=== PATIENT | female | born 1980 | race Two or more races ===

== ENCOUNTER 2017-09-08 15:34 | Emergency (ER) | payer OTHER ==
[~2017-09-08] VITALS: Ht 165.1 cm; Wt 61.2 kg
[2017-09-08 15:35] VITALS: BP 138/80
[2017-09-08] MEDS ORDERED: IBUPROFEN 600 MG TABLET PO ONE ×2 (16:15→16:30)
== END 2017-09-08 16:21 | disposition home or self-care (01) ==
LOC: ER 15:39
DX: S39.012A Strain of muscle, fascia and tendon of lower back, initial encounter (principal); W01.0XXA Fall on same level from slipping, tripping and stumbling without subsequent striking against object, initial encounter; Y93.89 Activity, other specified; Y92.89 Other specified places as the place of occurrence of the external cause; Y99.8 Other external cause status
CPT/HCPCS: A4606; Z7610

== ENCOUNTER 2018-12-06 16:22 | Emergency (ER) | payer OTHER ==
[~2018-12-06] VITALS: Ht 162.6 cm; Wt 64.4 kg
[2018-12-06 16:37] VITALS: BP 133/66
--- NOTE | 2018-12-06 16:37 | NUR ---
BIB SELF W C/O COUGH AND CONGESTION x 5 DAYS, AFEBRILE, -SOB, TO ER BED 9, HOOKED TO MONITOR, AWAITING MD WILCOX
== END 2018-12-06 17:25 | disposition home or self-care (01) ==
LOC: ER 16:22
DX: J02.9 Acute pharyngitis, unspecified (principal); Z60.2 Problems related to living alone

== ENCOUNTER 2020-01-28 15:36 | Emergency (ER) | payer OTHER ==
[~2020-01-28] VITALS: Ht 162.6 cm; Wt 63.5 kg
--- NOTE | 2020-01-28 16:00 | NUR ---
"I THINK I MIGHT BE " CRAMPING AND VOMITING WITH EATING X4 WKS. PATIENT A/OX4, BREATHING EVEN AND UNLABORED, NO SOB NOTED, NO DISTRESS NOTED. KEPT COMFORTABLE IN BED, CHANGED INTO GOWN.
[2020-01-28 16:27] LABS: BASOPHILS % (AUTO) 0.2 % (0.0-2.0); EOSINOPHILS % (AUTO) 0.5 % (0.0-6.0); HEMATOCRIT 41 % (33-45); HEMOGLOBIN 13.6 g/dL (11.5-14.8); LYMPHOCYTES # (AUTO) 1.8 /CMM (0.8-4.8); LYMPHOCYTES % (AUTO) 13.9 % (20.0-44.0); MEAN CORPUSCULAR HGB CONC 34 g/dl (31.0-36.0); MEAN CORPUSCULAR VOLUME 94 fL (82-100); MONOCYTES # (AUTO) 0.9 /CMM (0.1-1.30); NEUTROPHILS # (AUTO) 9.9 /CMM (1.8-8.9); NEUTROPHILS % (AUTO) 78.4 % (43.0-81.0); PLATELET COUNT (AUTO) 240 /CMM (150-450); RED BLOOD CELL COUNT(AUTO) 4.32 MIL/uL (4.0-5.2); WHITE BLOOD COUNT (AUTO) 12.7 K/uL (4.3-11.0)
[2020-01-28 16:41] LABS: CREATININE 0.5 mg/dL (0.6-1.3); POTASSIUM 3.8 mmol/L (3.5-5.1)
[2020-01-28 16:45] LABS: APPEARANCE,URINE Clear (CLEAR); BILIRUBIN,URINE Negative (NEGATIVE); BLOOD, URINE Negative Ery/uL (NEGATIVE); COLOR,URINE Yellow (YELLOW); KETONES,URINE Negative (NEGATIVE); LEUKOCYTE ESTERASE ,URINE Negative (NEGATIVE); NITRITE, URINE Negative (NEGATIVE); PH,URINE 7.5 (5.0-8.0); PROTEIN,URINE Negative (NEGATIVE); UGLUCOSE Negative (NEGATIVE); UROBILINOGEN,URINE 0.2 EU/dL (0.2)
--- NOTE | 2020-01-28 16:55 | NUR ---
US TECH AT BEDSIDE.
[2020-01-28 16:58] LABS: ALBUMIN 3.5 g/dL (3.4-5.0)
--- NOTE | 2020-01-28 18:39 | NUR ---
PATIENT A/OX4, AMBULATORY, DENIES VAGINAL BLEEDING. NEEDS ATTENDED. Patient discharged to home in stable condition. Written and verbal after care instructions given. Patient verbalizes understanding of instruction.
[2020-01-28 18:41] VITALS: BP 119/73
== END 2020-01-28 18:41 | disposition home or self-care (01) ==
LOC: ER 15:38
DX: O21.9 Vomiting of pregnancy, unspecified (principal); Z3A.10 10 weeks gestation of pregnancy
CPT/HCPCS: 36415; 76805-TC; 80053-TC; 81000-TC; 83690-TC; 84702-TC; 84703-TC; 85025-TC

== ENCOUNTER 2020-09-04 20:13 | Emergency (ER) | payer OTHER ==
[~2020-09-04] VITALS: Ht 162.6 cm; Wt 67.1 kg
[2020-09-04 20:19] VITALS: BP 154/115
== END 2020-09-04 21:03 | disposition home or self-care (01) ==
LOC: ER 20:13
DX: M79.18 Myalgia, other site (principal); M54.6 Pain in thoracic spine; Z98.890 Other specified postprocedural states

== ENCOUNTER 2023-09-05 09:54 | Emergency (ER) | payer OTHER ==
[~2023-09-05] VITALS: Ht 162.6 cm; Wt 74.8 kg
[2023-09-05 09:59] VITALS: BP 138/81; TEMP 98.7
[2023-09-05] MEDS ORDERED: HUMI1EAC4 MC (10:46)
[2023-09-05] MEDS ORDERED: FLUT16SP16 BNOSTRILS (10:46)
[2023-09-05 10:58] VITALS: O2SAT 100
== END 2023-09-05 10:57 | disposition home or self-care (01) ==
LOC: ER 09:57
DX: R05.9 Cough, unspecified (principal); Z98.890 Other specified postprocedural states; Z79.899 Other long term (current) drug therapy